=== PATIENT | female | born 1965 | race Two or more races ===

== ENCOUNTER 2019-04-18 07:23 | Inpatient (IN) | payer OTHER ==
[2019-04-18] MEDS: NORMAL SALINE 1000 ML 1,000 ML IV PRN ×2 (08:10→09:50)
[2019-04-18 08:12] LABS: ABSOLUTE BASOPHILS # (AUTO) 0.1 10^3/uL (0.0-0.2); ABSOLUTE EOSINOPHILS # (AUTO) 0.1 10^3/uL (0.0-0.6); ABSOLUTE LYMPHOCYTES (AUTO) 2.2 10^3/uL (0.5-4.7); ABSOLUTE MONOCYTES (AUTO) 0.8 10^3/uL (0.1-1.4); ABSOLUTE NEUT (AUTO) 8.7 10^3/uL (1.7-8.2); BASOPHILS % (AUTO) 0.5 % (0-2); EOSINOPHILS % (AUTO) 0.5 % (0-6); HEMATOCRIT 41.8 % (36.0-47.0); LYMPHOCYTES % (AUTO) 18.5 % (13-45); MEAN CORPUSCULAR HEMOGLOBIN 30.5 pg (27.0-33.4); MEAN CORPUSCULAR HGB CONC 33.6 g/dL (32.0-36.0); MEAN CORPUSCULAR VOLUME 91 fl (80-97); MONOCYTES % (AUTO) 6.4 % (3-13); PLATELET COUNT 391 10^3/uL (150-450); RED BLOOD COUNT 4.61 10^6/uL (3.72-5.28); RED CELL DISTRIBUTION WIDTH 13.3 % (11.5-14.0); SEGMENTED NEUTROPHILS % (AUTO) 74.1 % (42-78); TOTAL CELLS COUNTED % (AUTO) 100 %; WHITE BLOOD COUNT 11.7 10^3/uL (4.0-10.5)
[2019-04-18] MEDS ORDERED: FENTANYL CITRATE INJ/PF 100 MCG/2 ML AMPUL IV ONE (08:16)
[2019-04-18] MEDS ORDERED: VANCOMYCIN HCL INJ 1000 MG VIAL IV ONE (08:16)
[2019-04-18] MEDS ORDERED: LIDOCAINE 2% INJ (20 MG/ML) 20 ML MDV INJ ONE (08:19)
[2019-04-18 08:23] LABS: INTERNATIONAL RATION (INR) 0.92; PROTHROMBIN TIME 12.4 SEC (11.4-15.4)
--- NOTE | 2019-04-18 08:23 | ER Document Report ---
ED General - General Chief Complaint: Facial Swelling Stated Complaint: FACIAL SWELLING Time Seen by Provider: 04/18/19 08:01 TRAVEL OUTSIDE OF THE [place] IN LAST 30 DAYS: No - HPI Notes: Patient is a 53-year-old female that presents to the emergency department for chief complaint of facial cellulitis. Patient states at 1 AM yesterday she started having pain in her 10th and 11th tooth. She reports increased redness and swelling to her face throughout yesterday and when she woke up this morning her eye appeared swollen as well. She denies fevers. She denies pain with ocular movement. 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 She has had a total of 3 doses of amoxicillin and states that the cellulitis is getting worse quickly. She denies history of dental abscesses or infections in the past. She denies recent dental procedure. Past Medical History: GERD Past Surgical History: Negative Social History: Denies drugs alcohol and tobacco Family History: Reviewed and noncontributory for presenting illness Allergies: Reviewed, see documented allergy list. REVIEW OF SYSTEMS: CONSTITUTIONAL : No fever No chills No diaphoresis No recent illness EENT: No vision changes No congestion No sore throat Facial swelling Dental pain CARDIOVASCULAR: No chest pain No palpitations RESPIRATORY: No shortness of breath No cough No difficulty breathing GASTROINTESTINAL: No abdominal pain No nausea No vomiting No diarrhea GENITOURINARY: No dysuria No hematuria No difficulty urinating MUSCULOSKELETAL: No back pain No leg pain No arm pain SKIN: No rashes No lesions LYMPHATIC: No swollen, enlarged glands. NEUROLOGICAL: No lightheadedness No headache No weakness No paresthesias PSYCHIATRIC: No anxiety No depression PHYSICAL EXAMINATION: Vital signs reviewed, nursing noted reviewed. GENERAL: Well-appearing, well-nourished and in no acute distress. HEAD: Atraumatic, normocephalic. EYES: Eyes appear normal, extraocular movements intact, sclera anicteric, conjunctiva are normal. ENT: left periorbital and facial erythema and edema with tenderness to palpation and fluctuance just inferior to left zygomatic process. Dental tenderness to percussion of tooth 10 and 11 with gingival erythema. nares patent, oropharynx clear without exudates. Moist mucous membranes. NECK: Normal range of motion, supple without lymphadenopathy LUNGS: Breath sounds clear to auscultation bilaterally and equal. No wheezes rales or rhonchi. HEART: Tachycardic rate and regular rhythm without murmurs ABDOMEN: Soft, nontender, normoactive bowel sounds. No rebound, guarding, or ri gidity. No masses appreciated. EXTREMITIES: Nontender, good range of motion, no pitting or edema. NEUROLOGICAL: No focal neurological deficits. Moves all extremities spontaneously Motor and sensory grossly intact on exam. PSYCH: Normal mood, normal affect. SKIN: Warm, Dry, normal turgor, left periorbital and facial erythema - Related Data Allergies/Adverse Reactions: No Known Allergies Allergy (Unverified 04/18/19 08:07) Past Medical History - Social History Smoking Status: Unknown if Ever Smoked Family History: Reviewed & Not Pertinent Patient has suicidal ideation: No Patient has homicidal ideation: No Renal/ Medical History: Denies: Hx Peritoneal Dialysis Physical Exam - Vital signs Vitals: Temp Pulse Resp BP Pulse Ox 99.1 F 127 H 20 133/97 H 96 04/18/19 07:29 04/18/19 07:29 04/18/19 07:29 04/18/19 07:29 04/18/19 07:29 Course - Re-evaluation Re-evalutation: 04/18/19 09:08 Vitals reviewed. Nursing notes reviewed. Patient presented tachycardic and borderline febrile. She has significant left facial swelling and cellulitis. There was a small area of fluctuance which I perform needle aspiration on, I did obtain scant purulent drainage. Most of her facial swelling is induration from cellulitis. She has had 3 doses of amoxicillin with rapid progression of the cellulitis. At this point she is requiring stronger antibiotics and was ordered IV vancomycin. Patient did receive fentanyl for pain prior to aspiration and reports improvement of her symptoms. She has a slight elevation in WBC count with no lactic acidosis and is not meeting sepsis criteria. Patient has no pain with ocular movement to suggest post septal cellulitis. Patient will be admitted to the hospital for failed outpatient management of her facial cellulitis and abscess. Care discussed with Dr. Hicks Laboratory 04/18/19 04/18/19 04/18/19 07:56 07:56 07:56 WBC 11.7 H RBC 4.61 Hgb 14.0 Hct 41.8 MCV 91 MCH 30.5 MCHC 33.6 RDW 13.3 Plt Count 391 Seg Neutrophils % 74.1 Lymphocytes % 18.5 Monocytes % 6.4 Eosinophils % 0.5 Basophils % 0.5 Absolute Neutrophils 8.7 H Absolute Lymphocytes 2.2 Absolute Monocytes 0.8 Absolute Eosinophils 0.1 Absolute Basophils 0.1 PT 12.4 INR 0.92 Sodium 138.4 Potassium 4.1 Chloride 103 Carbon Dioxide 26 Anion Gap 9 BUN 8 Creatinine 0.75 Est GFR ( Amer) > 60 Est GFR (Non-Af Amer) > 60 Glucose 131 H Lactic Acid Calcium 9.4 Total Bilirubin 0.9 Direct Bilirubin 0.3 Neonat Total Bilirubin Not Reportable Neonat Direct Bilirubin Not Reportable Neonat Indirect Bili Not Reportable AST 32 ALT 52 Alkaline Phosphatase 94 Total Protein 7.5 Albumin 4.3 04/18/19 07:56 WBC RBC Hgb Hct MCV MCH MCHC RDW Plt Count Seg Neutrophils % Lymphocytes % Monocytes % Eosinophils % Basophils % Absolute Neutrophils Absolute Lymphocytes Absolute Monocytes Absolute Eosinophils Absolute Basophils PT INR Sodium Potassium Chloride Carbon Dioxide Anion Gap BUN Creatinine Est GFR ( Amer) Est GFR (Non-Af Amer) Glucose Lactic Acid 1.0 Calcium Total Bilirubin Direct Bilirubin Neonat Total Bilirubin Neonat Direct Bilirubin Neonat Indirect Bili AST ALT Alkaline Phosphatase Total Protein Albumin Chest X-Ray 04/18/19 07:45 IMPRESSION: NO ACUTE RADIOGRAPHIC FINDING IN THE CHEST. 04/18/19 10:12 - Vital Signs Vital signs: Temp Pulse Resp BP Pulse Ox 99.1 F 104 H 15 133/97 H 97 04/18/19 07:29 04/18/19 08:52 04/18/19 08:07 04/18/19 07:29 04/18/19 08:07 - Laboratory Result Diagrams: 04/18/19 07:56 04/18/19 07:56 Laboratory results interpreted by me: 04/18/19 04/18/19 04/18/19 07:56 07:56 08:45 WBC 11.7 H Absolute Neutrophils 8.7 H VBG pH Glucose 131 H Urine Ketones 20 H 04/18/19 09:35 WBC Absolute Neutrophils VBG pH 7.29 L Glucose Urine Ketones - Diagnostic Test Radiology reviewed: Image reviewed, Reports reviewed - EKG Interpretation by Me Additional EKG results interpreted by me: 04/18/19 09:10 Interpreted by myself [id number]: Normal sinus rhythm, rate 96, normal axis, no ectopy, no STEMI Procedures - Incision and Drainage Left Face Time completed: 09:07 Type: Simple Incision Method: Incision made with needle Amount/type of drainage: scant purulent and bloody discharge Notes: 04/18/19 09:08 18-gauge needle used to aspirate an abscess with scant purulent drainage expressed. She tolerated procedure well with no immediate complications Discharge - Discharge Clinical Impression: Facial cellulitis, Preseptal cellulitis of left eye, Facial abscess Condition: Stable Disposition: ADMITTED INPATIENT Admitting Provider: Kurt (Hospitalist) Unit Admitted: Medical Floor
[2019-04-18 08:31] LABS: ALANINE AMINOTRANSFERASE 52 U/L (9-52); ALBUMIN 4.3 g/dL (3.5-5.0); ALKALINE PHOSPHATASE 94 U/L (38-126); ANION GAP 9 (5-19); ASPARTATE AMINO TRANSFERASE 32 U/L (14-36); BILIRUBIN,DIRECT 0.3 mg/dL (0.0-0.4); BILIRUBIN,TOTAL 0.9 mg/dL (0.2-1.3); BLOOD UREA NITROGEN 8 mg/dL (7-20); CALCIUM 9.4 mg/dL (8.4-10.2); CARBON DIOXIDE 26 mmol/L (22-30); CHLORIDE 103 mmol/L (98-107); GLUCOSE 131 mg/dL (75-110); POTASSIUM 4.1 mmol/L (3.6-5.0); SODIUM 138.4 mmol/L (137-145); TOTAL PROTEIN 7.5 g/dL (6.3-8.2)
--- NOTE | 2019-04-18 09:02 | RADIOLOGY REPORT (SQ) ---
EXAM DESCRIPTION: CHEST SINGLE VIEW COMPLETED DATE/TIME: 04/18/2019 8:37 am REASON FOR STUDY: fever COMPARISON: None. EXAM PARAMETERS: NUMBER OF VIEWS: One view. TECHNIQUE: Single frontal radiographic view of the chest acquired. RADIATION DOSE: NA LIMITATIONS: None. FINDINGS: LUNGS AND PLEURA: No opacities, masses or pneumothorax. No pleural effusion. MEDIASTINUM AND HILAR STRUCTURES: No masses. Contour normal. HEART AND VASCULAR STRUCTURES: Heart normal in size. Normal vasculature. BONES: Old healed left clavicle fracture HARDWARE: None in the chest. OTHER: No other significant finding. IMPRESSION: NO ACUTE RADIOGRAPHIC FINDING IN THE CHEST. TECHNICAL DOCUMENTATION: JOB ID: [id number] [email or web address]- All Rights Reserved Reading location - IP/workstation name: [email or web address]
[2019-04-18 09:12] LABS: APPEARANCE,URINE CLEAR; BILIRUBIN,URINE NEGATIVE (NEGATIVE); COLOR,URINE YELLOW; GLUCOSE, URINE NEGATIVE (NEGATIVE); KETONES,URINE 20 mg/dL (NEGATIVE); LEUKOCYTE ESTERASE,URINE NEGATIVE (NEGATIVE); NITRITE,URINE NEGATIVE (NEGATIVE); PROTEIN,URINE NEGATIVE (NEGATIVE); URINE SPECIFIC GRAVITY 1.009; UROBILINOGEN,URINE NEGATIVE mg/dL (<2.0)
[2019-04-18 09:50] LABS: VENOUS BLOOD BASE EXCESS -4.3 mmol/L; VENOUS BLOOD HCO3 22.6 mmol/L (20-32); VENOUS BLOOD PCO2 48.1 mmHg (35-63); VENOUS BLOOD PH 7.29 (7.30-7.42)
[2019-04-18] MEDS ORDERED: TEMAZEPAM 15 MG CAPSULE PO PRN (09:54)
--- NOTE | 2019-04-18 10:09 | PDOC H&P ---
History of Present Illness Admission Date/PCP: 04/18/19 09:48 History of Present Illness: JAMEL NAVAS is a 53 year old female patient came from [place] to visit her son in [place] presents with chief complaint of left fascial swelling, pain and tenderness of 1 day duration. The above-mentioned complaints she had a total of 3 doses of amoxicillin and states that the cellulitis is getting worse quickly. She denies any fever, chills, chest pain, nausea, vomiting or urinary complaints. She denies also headache, blurring of vision, dizziness or any seizure activity. Her blood works are unremarkable except mild leukocytosis of 11,000. Her pertinent finding is that she has swollen tender left side face. Social History Smoking Status: Never Smoker - Advance Directive Resuscitation Status: Full Code Family History Parental Family History Reviewed: Yes Children Family History Reviewed: Yes Sibling(s) Family History Reviewed.: Yes Medication/Allergy Allergies/Adverse Reactions: No Known Allergies Allergy (Unverified 04/18/19 08:07) Review of Systems Constitutional: PRESENT: as per HPI Eyes: PRESENT: as per HPI Ears: PRESENT: as per HPI Nose, Mouth, and Throat: PRESENT: as per HPI Respiratory: PRESENT: as per HPI Gastrointestinal: PRESENT: as per HPI Musculoskeletal: PRESENT: as per HPI Integumentary: PRESENT: as per HPI Neurological: PRESENT: as per HPI Psychiatric: PRESENT: as per HPI Physical Exam Vital Signs: Temp Pulse Resp BP Pulse Ox 99.1 F 104 H 15 133/97 H 97 04/18/19 07:29 04/18/19 08:52 04/18/19 08:07 04/18/19 07:29 04/18/19 08:07 Intake & Output 04/17/19 04/18/19 04/19/19 06:59 06:59 06:59 Intake Total 1000 Balance 1000 Weight 72 kg General appearance: PRESENT: no acute distress Head exam: PRESENT: other - Left fascial swelling and tenderness Eye exam: PRESENT: other - Left infraorbital swelling Ear exam: PRESENT: normal external ear exam Mouth exam: PRESENT: moist, tongue midline Neck exam: ABSENT: carotid bruit, JVD, lymphadenopathy, thyromegaly Respiratory exam: PRESENT: clear to auscultation manpreet. ABSENT: rales, rhonchi, wheezes Cardiovascular exam: PRESENT: RRR. ABSENT: diastolic murmur, rubs, systolic murmur Pulses: PRESENT: normal dorsalis pedis pul Vascular exam: PRESENT: normal capillary refill GI/Abdominal exam: PRESENT: normal bowel sounds, soft. ABSENT: distended, guarding, mass, organolmegaly, rebound, tenderness Rectal exam: PRESENT: deferred Extremities exam: PRESENT: full ROM. ABSENT: calf tenderness, clubbing, pedal edema Neurological exam: PRESENT: alert, awake, oriented to person, oriented to place, oriented to time, oriented to situation, CN II-XII grossly intact. ABSENT: motor sensory deficit Psychiatric exam: PRESENT: appropriate affect, normal mood. ABSENT: homicidal ideation, suicidal ideation Skin exam: PRESENT: dry, intact, warm. ABSENT: cyanosis, rash Results Laboratory Results: 04/18/19 07:56 04/18/19 07:56 04/18/19 04/18/19 04/18/19 07:56 07:56 07:56 WBC 11.7 H RBC 4.61 Hgb 14.0 Hct 41.8 MCV 91 MCH 30.5 MCHC 33.6 RDW 13.3 Plt Count 391 Seg Neutrophils % 74.1 Lymphocytes % 18.5 Monocytes % 6.4 Eosinophils % 0.5 Basophils % 0.5 Absolute Neutrophils 8.7 H Absolute Lymphocytes 2.2 Absolute Monocytes 0.8 Absolute Eosinophils 0.1 Absolute Basophils 0.1 VBG pH VBG pCO2 VBG HCO3 VBG Base Excess Sodium 138.4 Potassium 4.1 Chloride 103 Carbon Dioxide 26 Anion Gap 9 BUN 8 Creatinine 0.75 Est GFR ( Amer) > 60 Est GFR (Non-Af Amer) > 60 Glucose 131 H Lactic Acid 1.0 Calcium 9.4 Total Bilirubin 0.9 AST 32 ALT 52 Alkaline Phosphatase 94 Total Protein 7.5 Albumin 4.3 Urine Color Urine Appearance Urine pH Ur Specific [place] Urine Protein Urine Glucose (UA) Urine Ketones Urine Blood Urine Nitrite Ur Leukocyte Esterase Urine WBC (Auto) Urine RBC (Auto) 04/18/19 04/18/19 08:45 09:35 WBC RBC Hgb Hct MCV MCH MCHC RDW Plt Count Seg Neutrophils % Lymphocytes % Monocytes % Eosinophils % Basophils % Absolute Neutrophils Absolute Lymphocytes Absolute Monocytes Absolute Eosinophils Absolute Basophils VBG pH 7.29 L VBG pCO2 48.1 VBG HCO3 22.6 VBG Base Excess -4.3 Sodium Potassium Chloride Carbon Dioxide Anion Gap BUN Creatinine Est GFR ( Amer) Est GFR (Non-Af Amer) Glucose Lactic Acid Calcium Total Bilirubin AST ALT Alkaline Phosphatase Total Protein Albumin Urine Color YELLOW Urine Appearance CLEAR Urine pH 7.0 Ur Specific [place] 1.009 Urine Protein NEGATIVE Urine Glucose (UA) NEGATIVE Urine Ketones 20 H Urine Blood NEGATIVE Urine Nitrite NEGATIVE Ur Leukocyte Esterase NEGATIVE Urine WBC (Auto) 4 Urine RBC (Auto) 0 Impressions: Chest X-Ray 04/18/19 07:45 IMPRESSION: NO ACUTE RADIOGRAPHIC FINDING IN THE CHEST. Assessment and Plan - Diagnosis (1) Left facial cellulitis Is this a current diagnosis for this admission?: Yes Plan: Failed outpatient antibiotic treatment. Patient has been started on Unasyn. (2) Rheumatoid arthritis Is this a current diagnosis for this admission?: Yes Plan: In remission. Continue home medication. (3) Esophageal reflux disease Is this a current diagnosis for this admission?: Yes Plan: Patient has been started on Pepcid. - Inpatient Certification Medical Necessity: Need for IV Antibiotics, Other - Failed outpatient antibiotic treatment.
[2019-04-18] MEDS: OXYCODONE-ACETAMINOPHEN 5-325 MG TABLET PO PRN (10:55)
[2019-04-18] MEDS: DOCUSATE SODIUM 100 MG CAPSULE PO SCH ×2 (10:55→21:58)
[2019-04-18] MEDS: FAMOTIDINE 20 MG TABLET PO SCH ×2 (10:55→21:52)
[2019-04-18] MEDS: ENOXAPARIN SODIUM INJ 40 MG/0.4 ML DISP.SYRIN SUBCUT SCH (10:56)
[2019-04-18] MEDS: ONDANSETRON HCL INJ/PF 4 MG/2 ML SDV IV PRN ×3 (11:01→21:51)
[2019-04-18] MEDS: AMPICILLIN SODIUM/SULBACTAM NA 3 GM in NORMAL SALINE 100 ML IV SCH ×2 (12:04→17:17)
[2019-04-18] MEDS: MORPHINE SULFATE 10 MG/ML INJ IV PRN ×2 (15:11→21:51)
--- NOTE | 2019-04-18 18:40 | EKG REPORT ---
SEVERITY:- NORMAL ECG - SINUS RHYTHM : Confirmed by: Marian Ching 18-Apr-2019 18:39:41
[2019-04-18] MEDS ORDERED: PIPERACILLIN/TAZOBACTAM 4.5 GM VIAL IV PRN (20:21)
[2019-04-18] MEDS ORDERED: CLINDAMYCIN 900 MG/D5W RTU 900 MG/50 ML RTUPB IV ONE (20:30)
[2019-04-18] MEDS ORDERED: PIPERACILLIN SODIUM/TAZOBACTAM 4.5 GM in NORMAL SALINE 100 ML IV ONE (20:30)
--- NOTE | 2019-04-18 22:18 | RADIOLOGY REPORT (SQ) ---
EXAM DESCRIPTION: RadLex: CT MAXILLOFACIAL WITH IV CONTRAST CLINICAL HISTORY: 53 years Female; cellultis TECHNIQUE: High resolution axial CT of the face with intravenous contrast., with sagittal and coronal reformatted images. All CT scans at this facility use dose modulation, iterative reconstruction, and/or weight based dosing when appropriate to reduce radiation dose to as low as reasonably achievable. COMPARISON: None. FINDINGS: There is diffuse soft tissue edema in the left anterior face, mostly adjacent to the mandible. Left platysma is slightly thickened. No focal fluid collections. No retro-orbital edema. No significantly enlarged cervical lymph nodes. No acute facial fractures. There is minimal chronic mucosal thickening in the left maxillary sinus and left sphenoid sinus. No sinus air-fluid levels. Mastoids are clear. No lytic bone changes. Normal enhancement in the major arteries and veins. Parotid and submandibular glands are normal. IMPRESSION: 1. Diffuse left facial cellulitis, without a discrete abscess. 2. No mass or adenopathy.
[2019-04-18] MEDS ORDERED: PIPERACILLIN/TAZOBACTAM 4.5 GM VIAL IV ONE (23:04)
[2019-04-19] MEDS: CLINDAMYCIN 900 MG/D5W RTU 900 MG/50 ML RTUPB IV SCH ×3 (01:14→17:58)
[2019-04-19] MEDS: PIPERACILLIN SODIUM/TAZOBACTAM 4.5 GM in NORMAL SALINE 100 ML IV SCH ×4 (04:38→21:09)
[2019-04-19 07:28] LABS: ABSOLUTE BASOPHILS # (AUTO) 0.1 10^3/uL (0.0-0.2); ABSOLUTE LYMPHOCYTES (AUTO) 2.1 10^3/uL (0.5-4.7); ABSOLUTE MONOCYTES (AUTO) 0.9 10^3/uL (0.1-1.4); ABSOLUTE NEUT (AUTO) 8.3 10^3/uL (1.7-8.2); BASOPHILS % (AUTO) 0.5 % (0-2); EOSINOPHILS % (AUTO) 0.2 % (0-6); HEMATOCRIT 39.5 % (36.0-47.0); HEMOGLOBIN 13.5 g/dL (12.0-15.5); LYMPHOCYTES % (AUTO) 18.4 % (13-45); MEAN CORPUSCULAR HEMOGLOBIN 30.6 pg (27.0-33.4); MEAN CORPUSCULAR HGB CONC 34.3 g/dL (32.0-36.0); MEAN CORPUSCULAR VOLUME 89 fl (80-97); PLATELET COUNT 363 10^3/uL (150-450); RED BLOOD COUNT 4.42 10^6/uL (3.72-5.28); RED CELL DISTRIBUTION WIDTH 13.5 % (11.5-14.0); SEGMENTED NEUTROPHILS % (AUTO) 72.9 % (42-78); TOTAL CELLS COUNTED % (AUTO) 100 %; WHITE BLOOD COUNT 11.4 10^3/uL (4.0-10.5)
[2019-04-19 08:02] LABS: ANION GAP 9 (5-19); BLOOD UREA NITROGEN 4 mg/dL (7-20); CALCIUM 9.4 mg/dL (8.4-10.2); CARBON DIOXIDE 27 mmol/L (22-30); CHLORIDE 101 mmol/L (98-107); GLUCOSE 102 mg/dL (75-110); POTASSIUM 4.3 mmol/L (3.6-5.0); SODIUM 136.7 mmol/L (137-145)
[2019-04-19] MEDS: ONDANSETRON HCL INJ/PF 4 MG/2 ML SDV IV PRN (08:59)
[2019-04-19] MEDS: KETOROLAC TROMETHAMINE INJ/PF 30 MG/1 ML SDV IV PRN ×2 (08:59→21:05)
[2019-04-19] MEDS: ENOXAPARIN SODIUM INJ 40 MG/0.4 ML DISP.SYRIN SUBCUT SCH (09:05)
[2019-04-19] MEDS: DOCUSATE SODIUM 100 MG CAPSULE PO SCH ×2 (09:05→21:31)
[2019-04-19] MEDS: FAMOTIDINE 20 MG TABLET PO SCH ×2 (09:05→21:31)
--- NOTE | 2019-04-19 13:06 | PDOC PROGRESS REPORT ---
Subjective Progress Note for:: 04/19/19 Subjective:: Is a 54-year-old female with rheumatoid arthritis on Enbrel who presented acuteleft facial swelling and tenderness she was admitted for. Left facial cellulitis. He was started on IV antibiotics. Her left facial swelling and tenderness apparently worsened last night but started improving this morning. She does have periorbital swelling as well. She does state that the mild swelling of the right eyelid and right face is new today although she says that the tightness and tenderness in the left facial area is a little better today. Reason For Visit: FACIAL CELLULITIS Physical Exam Vital Signs: Temp Pulse Resp BP Pulse Ox 99.2 F 92 12 144/81 H 97 04/19/19 07:31 04/19/19 07:31 04/19/19 07:31 04/19/19 07:31 04/19/19 07:31 Intake & Output 04/18/19 04/19/19 04/20/19 06:59 06:59 06:59 Intake Total 1200 50 Balance 1200 50 Weight 158 lb 11.725 oz General appearance: PRESENT: no acute distress, well-developed, well-nourished Head exam: PRESENT: atraumatic, normocephalic, other - Note of left facial and periorbital swelling and tenderness, no to minimal her right periorbital swelling as well. Eye exam: PRESENT: conjunctiva pink, EOMI, PERRLA. ABSENT: scleral icterus Ear exam: PRESENT: normal external ear exam Mouth exam: PRESENT: moist, tongue midline Neck exam: ABSENT: carotid bruit, JVD, lymphadenopathy, thyromegaly Respiratory exam: PRESENT: clear to auscultation manpreet. ABSENT: rales, rhonchi, wheezes Cardiovascular exam: PRESENT: RRR. ABSENT: diastolic murmur, rubs, systolic murmur Pulses: PRESENT: normal dorsalis pedis pul GI/Abdominal exam: PRESENT: normal bowel sounds, soft. ABSENT: distended, guarding, mass, organolmegaly, rebound, tenderness Rectal exam: PRESENT: deferred Extremities exam: PRESENT: full ROM. ABSENT: calf tenderness, clubbing, pedal edema Neurological exam: PRESENT: alert, awake, oriented to person, oriented to place, oriented to time, oriented to situation, CN II-XII grossly intact. ABSENT: motor sensory deficit Results Laboratory Results: 04/19/19 07:05 04/19/19 07:05 04/19/19 04/19/19 07:05 07:05 WBC 11.4 H RBC 4.42 Hgb 13.5 Hct 39.5 MCV 89 MCH 30.6 MCHC 34.3 RDW 13.5 Plt Count 363 Seg Neutrophils % 72.9 Lymphocytes % 18.4 Monocytes % 8.0 Eosinophils % 0.2 Basophils % 0.5 Absolute Neutrophils 8.3 H Absolute Lymphocytes 2.1 Absolute Monocytes 0.9 Absolute Eosinophils 0.0 Absolute Basophils 0.1 Sodium 136.7 L Potassium 4.3 Chloride 101 Carbon Dioxide 27 Anion Gap 9 BUN 4 L Creatinine 0.58 Est GFR ( Amer) > 60 Est GFR (Non-Af Amer) > 60 Glucose 102 Calcium 9.4 Impressions: Facial Bones CT 04/18/19 00:00 IMPRESSION: 1. Diffuse left facial cellulitis, without a discrete abscess. 2. No mass or adenopathy. Chest X-Ray 04/18/19 07:45 IMPRESSION: NO ACUTE RADIOGRAPHIC FINDING IN THE CHEST. Assessment and Plan - Diagnosis (1) Left facial cellulitis Is this a current diagnosis for this admission?: Yes Plan: Failed outpatient antibiotic treatment. Currently on clindamycin and Zosyn. There is some improvement in the left facial swelling but she says that there is no new mild right periorbital swelling. Currently being treated for left facial cellulitis but will also rule out a cavernous sinus thrombosis. Another less likely possibility is angioedema from Enbrel. (2) Preseptal cellulitis of left eye Is this a current diagnosis for this admission?: Yes Plan: As per number 1. (3) Rheumatoid arthritis Is this a current diagnosis for this admission?: Yes Plan: In remission. On Enbrel at home. - Time Time Spent with patient: 25-34 minutes
--- NOTE | 2019-04-19 15:55 | RADIOLOGY REPORT (SQ) ---
EXAM DESCRIPTION: MRI HEAD COMBO COMPLETED DATE/TIME: 04/19/2019 3:44 pm REASON FOR STUDY: r/o cavernous sinus thrombosis COMPARISON: None. TECHNIQUE: Multiplanar imaging includes noncontrasted T1, T2, FLAIR, diffusion with ADC map and post gadolinium contrast T1 sequences. Images stored on PACS. CONTRAST TYPE AND DOSE: 10 mL Dotarem. RENAL FUNCTION: Not indicated. ACR Type II contrast agent associated with few, if any, unconfounded cases of NSF LIMITATIONS: None. FINDINGS: ANATOMY: No developmental anomalies. Normal vascular flow voids. Pituitary fossa normal. CSF SPACES: Normal in size and contour. No hemorrhage. CEREBRUM: Sulci and gyri normal in size and contour. Normal white matter signal on FLAIR imaging. No evidence of hemorrhage, mass, or extraaxial fluid collection. No abnormal enhancement post contrast. POSTERIOR FOSSA: No signal alteration. No hemorrhage. No edema, masses, or mass effect. Internal narinder tory canals, cerebellopontine angles, mastoids normal. No enhancing lesions. No abnormal enhancement post contrast. DIFFUSION IMAGING: Negative for acute or subacute infarction. ORBITS: No masses. Globes normal. PARANASAL SINUSES: No fluid levels. Mucosa normal. OTHER: Normal enhancement of the dural venous sinuses including the cavernous sinuses bilaterally. IMPRESSION: NORMAL MRI OF THE BRAIN WITHOUT AND WITH INTRAVENOUS GADOLINIUM CONTRAST. EVIDENCE OF ACUTE STROKE: NO. TECHNICAL DOCUMENTATION: JOB ID: [id number] [employer]- All Rights Reserved Reading location - IP/workstation name: [email or web address]
[2019-04-20] MEDS: CLINDAMYCIN 900 MG/D5W RTU 900 MG/50 ML RTUPB IV SCH ×3 (03:00→18:07)
[2019-04-20] MEDS: KETOROLAC TROMETHAMINE INJ/PF 30 MG/1 ML SDV IV PRN ×3 (03:47→20:49)
[2019-04-20] MEDS: PIPERACILLIN SODIUM/TAZOBACTAM 4.5 GM in NORMAL SALINE 100 ML IV SCH ×4 (04:48→20:48)
[2019-04-20] MEDS ORDERED: METHYLPREDNISOLONE INJ 40 MG/1 ML SDV IV SCH (10:00)
--- NOTE | 2019-04-20 10:50 | PDOC PROGRESS REPORT ---
Subjective Subjective:: This is a 54-year-old female with rheumatoid arthritis on Enbrel who presented acuteleft facial swelling and tenderness she was admitted for. Left facial cellulitis. He was started on IV antibiotics. Her left facial swelling and tenderness apparently worsened last night but started improving this morning. She does have periorbital swelling as well. She does state that the mild swelling of the right eyelid and right face is new today although she says that the tightness and tenderness in the left facial area is a little better today. 04/20: No acute event overnight. There is slight improvement on the left facial and left periorbital swelling. There is still right periorbital swelling which is slightly improved from yesterday. Lip swelling is also slightly improved. Facial erythema has also improved. Reason For Visit: FACIAL CELLULITIS Physical Exam Vital Signs: Temp Pulse Resp BP Pulse Ox 98.1 F 78 16 117/73 98 04/20/19 07:15 04/20/19 07:15 04/20/19 07:15 04/20/19 07:15 04/20/19 07:15 Intake & Output 04/19/19 04/20/19 04/21/19 06:59 06:59 06:59 Intake Total 1200 550 Balance 1200 550 Weight 158 lb 11.725 oz 159 lb 9.835 oz General appearance: PRESENT: no acute distress, well-developed, well-nourished Head exam: PRESENT: other - There is slight improvement on the left facial and left periorbital swelling. There is still right periorbital swelling which is slightly improved from yesterday. Lip swelling is also slightly improved. Facial erythema has also improved. Eye exam: PRESENT: conjunctiva pink, EOMI, PERRLA. ABSENT: scleral icterus Ear exam: PRESENT: normal external ear exam Mouth exam: PRESENT: moist, tongue midline Neck exam: ABSENT: carotid bruit, JVD, lymphadenopathy, thyromegaly Respiratory exam: PRESENT: clear to auscultation manpreet. ABSENT: rales, rhonchi, wheezes Cardiovascular exam: PRESENT: RRR. ABSENT: diastolic murmur, rubs, systolic murmur Pulses: PRESENT: normal dorsalis pedis pul GI/Abdominal exam: PRESENT: normal bowel sounds, soft. ABSENT: distended, guarding, mass, organolmegaly, rebound, tenderness Rectal exam: PRESENT: deferred Extremities exam: PRESENT: full ROM. ABSENT: calf tenderness, clubbing, pedal edema Neurological exam: PRESENT: alert, awake, oriented to person, oriented to place, oriented to time, oriented to situation, CN II-XII grossly intact. ABSENT: motor sensory deficit Results Laboratory Results: 04/19/19 07:05 04/19/19 07:05 04/18/19 08:45 Clean Catch Midstream Urine Culture - Final Escherichia Coli Impressions: Facial Bones CT 04/18/19 00:00 IMPRESSION: 1. Diffuse left facial cellulitis, without a discrete abscess. 2. No mass or adenopathy. Chest X-Ray 04/18/19 07:45 IMPRESSION: NO ACUTE RADIOGRAPHIC FINDING IN THE CHEST. Head MRI 04/19/19 15:44 IMPRESSION: NORMAL MRI OF THE BRAIN WITHOUT AND WITH INTRAVENOUS GADOLINIUM CONTRAST. EVIDENCE OF ACUTE STROKE: NO. Assessment and Plan - Diagnosis (1) Left facial cellulitis Is this a current diagnosis for this admission?: Yes Plan: 04/19: Failed outpatient antibiotic treatment. Currently on clindamycin and Zosyn. There is some improvement in the left facial swelling but she says that there is no new mild right periorbital swelling. Currently being treated for left facial cellulitis but will also rule out a cavernous sinus thrombosis. Another less likely possibility is angioedema from Enbrel. 04/20: Slightly improved. Cavernous sinus thrombosis ruled out. There is slight improvement on the left facial and left periorbital swelling. There is still right periorbital swelling which is slightly improved from yesterday. Lip swelling is also slightly improved. Facial erythema has also improved. Continue IV antibiotics. (2) Preseptal cellulitis of left eye Is this a current diagnosis for this admission?: Yes Plan: As per number 1. (3) Rheumatoid arthritis Is this a current diagnosis for this admission?: Yes Plan: In remission. On Enbrel at home. - Time Time Spent with patient: 25-34 minutes
[2019-04-20] MEDS: ENOXAPARIN SODIUM INJ 40 MG/0.4 ML DISP.SYRIN SUBCUT SCH ×2 (11:19→11:26)
[2019-04-20] MEDS: FAMOTIDINE 20 MG TABLET PO SCH ×3 (11:21→22:05)
[2019-04-20] MEDS: DOCUSATE SODIUM 100 MG CAPSULE PO SCH ×3 (11:21→18:06)
[2019-04-20] MEDS: OXYCODONE-ACETAMINOPHEN 5-325 MG TABLET PO PRN ×2 (11:56→18:19)
[2019-04-20] MEDS: METHYLPREDNISOLONE INJ 40 MG/1 ML SDV IV SCH ×2 (13:22→23:42)
[2019-04-21] MEDS: CLINDAMYCIN 900 MG/D5W RTU 900 MG/50 ML RTUPB IV SCH (02:24)
[2019-04-21 04:15] VITALS: BP 110/62
[2019-04-21] MEDS: PIPERACILLIN SODIUM/TAZOBACTAM 4.5 GM in NORMAL SALINE 100 ML IV SCH ×2 (04:25→09:34)
[2019-04-21] MEDS: FAMOTIDINE 20 MG TABLET PO SCH (09:31)
[2019-04-21] MEDS: DOCUSATE SODIUM 100 MG CAPSULE PO SCH (09:31)
[2019-04-21] MEDS: ENOXAPARIN SODIUM INJ 40 MG/0.4 ML DISP.SYRIN SUBCUT SCH (09:31)
--- NOTE | 2019-04-21 18:02 | PDOC DISCHARGE SUMMARY ---
General - Admit/Disc Date/PCP Admission Date/Primary Care Provider: 04/18/19 09:48 Discharge Date: 04/21/19 - Discharge Diagnosis (1) Left facial cellulitis Is this a current diagnosis for this admission?: Yes (2) Preseptal cellulitis of left eye Is this a current diagnosis for this admission?: Yes (3) Rheumatoid arthritis Is this a current diagnosis for this admission?: Yes - Additional Information Resuscitation Status: Full Code Discharge Diet: As Tolerated Discharge Activity: Activity As Tolerated Prescriptions: Clindamycin HCl [Cleocin 300 mg Capsule] 300 mg PO Q6H 5 Days #20 capsule Home Medications: Diclofenac Sodium [Voltaren 50 mg Tablet.dr] 50 mg PO Q12 04/18/19 Etanercept [Enbrel Sureclick] 50 mg SQ TH@1000 04/18/19 Omeprazole 40 mg PO DAILY 04/18/19 Clindamycin HCl [Cleocin 300 mg Capsule] 300 mg PO Q6H 5 Days #20 capsule 04/21/19 History of Present Illness History of Present Illness: Admitting hospitalist's H&P: JAMEL NAVAS is a 53 year old female patient came from [place] to visit her son in [place] presents with chief complaint of left fascial swelling, pain and tenderness of 1 day duration. The above-mentioned complaints she had a total of 3 doses of amoxicillin and states that the cellulitis is getting worse quickly. She denies any fever, chills, chest pain, nausea, vomiting or urinary complaints. She denies also headache, blurring of vision, dizziness or any seizure activity. Her blood works are unremarkable except mild leukocytosis of 11,000. Her pertinent finding is that she has swollen tender left side face. Hospital Course Hospital Course: This is a 54-year-old female with rheumatoid arthritis on Enbrel who presented with acutefacial swelling and tenderness. She was admitted for left facial cellulitis. She was started on IV antibiotics. Her left facial swelling and tenderness transiently worsened and start spreading to the right side. Cavernous sinus thrombosis was ruled out with MRI. There was a question if there is some component of Enbrel causing the swelling so she was given 2 doses of IV steroids. She did significantly improved and facial swelling was minimal on day of discharge. She will be discharged on PO clindamycin. She is flying back to [place] tomorrow and will closely follow up with her internet marketing strategist there to discuss if Enbrel may have contributed to her facial swelling. Physical Exam Vital Signs: Temp Pulse Resp BP Pulse Ox 98.9 F 70 18 110/62 99 04/21/19 10:08 04/21/19 10:08 04/21/19 10:08 04/21/19 10:08 04/21/19 10:08 Intake & Output 04/20/19 04/21/19 04/22/19 06:59 06:59 06:59 Intake Total 550 800 100 Balance 550 800 100 Weight 159 lb 9.835 oz 169 lb 15.622 oz General appearance: PRESENT: no acute distress, well-developed, well-nourished Head exam: PRESENT: atraumatic, normocephalic, other - note of minimal perio rbital and left facial swelling Eye exam: PRESENT: conjunctiva pink, EOMI, PERRLA. ABSENT: scleral icterus Ear exam: PRESENT: normal external ear exam Mouth exam: PRESENT: moist, tongue midline Neck exam: ABSENT: carotid bruit, JVD, lymphadenopathy, thyromegaly Respiratory exam: PRESENT: clear to auscultation manpreet. ABSENT: rales, rhonchi, wheezes Cardiovascular exam: PRESENT: RRR. ABSENT: diastolic murmur, rubs, systolic murmur Pulses: PRESENT: normal dorsalis pedis pul GI/Abdominal exam: PRESENT: normal bowel sounds, soft. ABSENT: distended, guarding, mass, organolmegaly, rebound, tenderness Rectal exam: PRESENT: deferred Extremities exam: PRESENT: full ROM. ABSENT: calf tenderness, clubbing, pedal edema Neurological exam: PRESENT: alert, awake, oriented to person, oriented to place, oriented to time, oriented to situation, CN II-XII grossly intact. ABSENT: motor sensory deficit Results Laboratory Results: 04/19/19 07:05 04/19/19 07:05 Impressions: Facial Bones CT 04/18/19 00:00 IMPRESSION: 1. Diffuse left facial cellulitis, without a discrete abscess. 2. No mass or adenopathy. Chest X-Ray 04/18/19 07:45 IMPRESSION: NO ACUTE RADIOGRAPHIC FINDING IN THE CHEST. Head MRI 04/19/19 15:44 IMPRESSION: NORMAL MRI OF THE BRAIN WITHOUT AND WITH INTRAVENOUS GADOLINIUM CONTRAST. EVIDENCE OF ACUTE STROKE: NO. Qualifiers - * PATIENT BEING DISCHARGED WITH ANY OF THE FOLLOWING DIAGNOSIS: No Acute Heart Failure - Is this a Heart Failure Patient?: No LVEF < 40%?: No- if no continue to question #3 3. Anticoagulant therapy for permanect/persistent/paraoxysmal Afib or Aflutter: N/A
== END 2019-04-21 10:57 | disposition home or self-care (01) | DRG 603 ==
LOC: ER 07:23 → EH 09:48 → 2S 10:36
PROVIDERS: ADMIT Internal Medicine; ATTEND Internal Medicine
PROC: 0H91XZX Drainage of Face Skin, External Approach, Diagnostic (ICD-10-PCS; principal; 2019-04-18)
DX: L03.211 Cellulitis of face (principal); L03.213 Periorbital cellulitis; M06.9 Rheumatoid arthritis, unspecified; K21.9 Gastro-esophageal reflux disease without esophagitis; Z79.1 Long term (current) use of non-steroidal anti-inflammatories (NSAID); T39.4X5A Adverse effect of antirheumatics, not elsewhere classified, initial encounter
CPT/HCPCS: 36415; 70487; 70553; 71045; 80048; 80053; 81001; 82803; 83605; 85025; 85610; 87040; 87086; 87088; 87186; 93005; 93010; A9576; J0295; J1650; J1885; J2270; J2405; J2543; J2920; J3010; J3370; J3490; J7030; J7050